=== PATIENT | female | born 1970 | race Caucasian/White ===

== ENCOUNTER 2016-09-03 06:18 | Day surgery (SDC) | payer OTHER ==
[2016-09-02 10:15] VITALS: BMI 28.4
[2016-09-03] MEDS ORDERED: MIDAZOLAM HCL 2 MG/2 ML SINGLE DOSE VIAL ONE ×2 (07:48→07:53)
[2016-09-03] MEDS ORDERED: ceFAZolin SODIUM 1 GM VIAL IVPB ONE (07:50)
[2016-09-03] MEDS ORDERED: IBUPROFEN 800 MG/8 ML IJ IVPB PRN (08:00)
[2016-09-03] MEDS ORDERED: DEXTROSE 5%-0.45% SALINE 1,000 ML IV SCH (08:00)
[2016-09-03] MEDS ORDERED: ACETAMINOPHEN 1000 MG/100 ML VIAL (NON FORMULARY) IVPB ONE (08:01)
--- NOTE | 2016-09-03 08:03 | HP ---
History & Physical Update - History History: No Change - Physical Physical: No Change - Assessment Assessment: No Change - Plan Plan: No Change
[2016-09-03] MEDS ORDERED: ONDANSETRON 4 MG/2 ML VIAL IVPUSH PRN (09:02)
[2016-09-03] MEDS ORDERED: oxyCODONE HCL 5 MG TABLET PO PRN (09:02)
[2016-09-03] MEDS ORDERED: PROMETHAZINE HCL 25 MG/1 ML VIAL IVPUSH PRN (09:02)
[2016-09-03] MEDS ORDERED: LACTATED RINGERS SOLUTION 1,000 ML IV SCH (09:15)
[2016-09-03 09:29] VITALS: TEMP 98.2
[2016-09-03 15:06] VITALS: BP 105/62; PULSE 65
--- NOTE | 2016-09-03 20:05 | OP ---
DATE OF OPERATION: 09/03/2016 PREOPERATIVE DIAGNOSIS: Right ureteral calculus. POSTOPERATIVE DIAGNOSIS: Right ureteral calculus. PROCEDURE: Right extracorporeal shock-wave lithotripsy. ANESTHESIA: General: Cynthia Low MD SURGEON: Perico Foster MD FINDINGS: A large stone in the distal right ureter. ESTIMATED BLOOD LOSS: Minimal. PREOPERATIVE INDICATIONS: The patient is a 45-year-old female with a 7-mm stone in distal right ureter, comes for ESWL. OPERATION: The patient was brought to the OR, placed on the table in supine position, given IV antibiotics. The stone was visualized on fluoroscopy, in the distal right ureter. Anesthesia was given. Timeout was performed. Then 3000 shocks were applied to distal right ureter and there appeared to be a breaking of the stone on x-ray. Patient tolerated the procedure well. She was woken up. PERICO FOSTER M.D. [id number]
== END 2016-09-03 11:30 | disposition home or self-care (01) ==
LOC: JASU-SURG 06:18
PROVIDERS: ATTEND Urology
PROC: 0TF6XZZ Fragmentation in Right Ureter, External Approach (ICD-10-PCS; principal; 2016-09-03 07:30)
DX: N20.1 Calculus of ureter (principal)
CPT/HCPCS: 84703; 94760